=== PATIENT | female | born 1985 | race Caucasian/White ===

== ENCOUNTER 2016-12-26 16:53 | Emergency (ER) | payer OTHER ==
[2016-12-26 17:10] VITALS: BP 133/61
--- NOTE | 2016-12-26 19:03 | UC ---
Complaint Female HPI - HPI Summary HPI Summary: 31 yo female 23 weeks presents with a 1-2 day hx of urinary urgency no dysuria no back pain no ctx no f/c no n/v seen in ED a few weeks ago/had ulrasound and diagnoses as having multiple kidney stones - History Of Current Complaint Chief Complaint: UCGU Stated Complaint: URINARY-23 WKS Time Seen by Provider: 12/26/16 18:44 Hx Last Menstrual Period: 03/30/15 Onset/Duration: Gradual Onset, Lasting Days Timing: Constant Severity Initially: Mild Severity Currently: Mild Pain Intensity: 3 Character: Dull Aggravating Factor(s): Nothing Alleviating Factor(s): Nothing - Allergies/Home Medications Allergies/Adverse Reactions: Allergies Allergy/AdvReac Type Severity Reaction Status Date / Time No Known Allergies Allergy Verified 12/26/16 17:10 Home Medications: Home Medications Docosahexaenoic Acid [ Dha] 200 mg PO DAILY 12/26/16 [History Confirmed 12/26/16] metFORMIN* [Glucophage 500 MG TAB *] 500 mg PO DAILY 12/26/16 [History Confirmed 12/26/16] PMH/Surg Hx/FS Hx/Imm Hx Previously Healthy: Yes - Surgical History Surgical History: Yes Surgery Procedure, Year, and Place: c sect 2007,. t/a at age 11 yrs. 2ND C SECTION 02/20/13 - Family History Known Family History: Positive: Hypertension - Social History Alcohol Use: None Substance Use Type: None Smoking Status (MU): Never Smoked Tobacco Have You Smoked in the Last Year: No Review of Systems Constitutional: Negative Skin: Negative Eyes: Negative ENT: Negative Respiratory: Negative Cardiovascular: Negative Gastrointestinal: Negative Genitourinary: Frequency, Urgency Motor: Negative Neurovascular: Negative Musculoskeletal: Negative Neurological: Negative Psychological: Negative All Other Systems Reviewed And Are Negative: Yes Physical Exam Triage Information Reviewed: Yes Appearance: Well-Appearing, No Pain Distress, Well-Nourished Vital Signs: Initial Vital Signs Temp 99.6 F 12/26/16 17:05 Pulse 91 12/26/16 17:05 Resp 16 12/26/16 17:05 BP 133/61 12/26/16 17:05 Pulse Ox 97 12/26/16 17:05 Eyes: Positive: Conjunctiva Clear ENT: Positive: Hearing grossly normal, Pharynx normal. Negative: Nasal congestion, Nasal drainage, Trismus, Muffled/hoarse voice Neck: Positive: Supple Respiratory: Positive: Lungs clear, Normal breath sounds, No respiratory distress, No accessory muscle use Cardiovascular: Positive: RRR Abdomen Description: Positive: Other: - gravid uterus. Negative: Nontender - slight suprapubic tenderness, CVA Tenderness (R), CVA Tenderness (L) Neurological: Positive: Alert, Muscle Tone Normal Skin Exam: Normal Complaint Female Dx - Course Course Of Treatment: U dip microscopic hematuria - Differential Dx/Diagnosis Provider Diagnoses: microscopic hematuria. ? urolithiasis Discharge - Discharge Plan Condition: Stable Disposition: HOME Prescriptions: Amoxicillin (*) [Amoxicillin 875 MG (*)] 875 mg PO BID #14 tab Patient Education Materials: Kidney Stones (ED), Urinary Tract Infection in Women (ED) Referrals: Swathi Jane PA [Primary Care Provider] - Additional Instructions: I suspect your symptoms are due to a kidney stone irritating your bladder We will start an antibiotic in case you have a UTI Culture will take 2-3 days TO ER FOR fever increased pain vomiting Call you OB in AM You may need a renal ultrasound and/or a urology referral
== END 2016-12-26 19:02 | disposition home or self-care (01) ==
LOC: UCCORT 16:53
DX: O26.892 Other specified pregnancy related conditions, second trimester (principal); R31.29 Other microscopic hematuria; Z3A.23 23 weeks gestation of pregnancy; Z87.442 Personal history of urinary calculi
CPT/HCPCS: 81003; 87086; 99212; G0463

== ENCOUNTER 2022-12-28 06:36 | Observation (INO) ==
[~2022-12-28 06:36] MED LIST: Buffered Lidocaine 1% SYRIN 1 ml INTRADERM ONE; Lactated Ringers 1000 ml BAG 1,000 ML IV SCH
[2022-12-28] MEDS ORDERED: Ondansetron ODT 4 mg TAB 4 MG TAB ONE (06:56)
[2022-12-28] MEDS ORDERED: Scopolamine 1 mg/72hr PATCH ONE (06:56)
[2022-12-28] MEDS ORDERED: ceFOXitin 2 GM IVPREMIX 2 GM/50 ML BAG ONE ×3 (06:57→12:36)
[2022-12-28] MEDS ORDERED: Lidocaine 2% PF 5 ML VIAL ONE (07:15)
[2022-12-28 07:17] LABS: Rapid COVID-19 Molecular Undetected (Undetected)
[2022-12-28] MEDS ORDERED: Propofol 10 MG/ML 20 ML BTL ONE ×2 (07:24→13:13)
[2022-12-28] MEDS ORDERED: Rocuronium 50 mg VIAL 10 mg/ml 5 ml VIAL (50 mg) ONE ×3 (07:25→11:11)
[2022-12-28] MEDS ORDERED: Midazolam 2 mg/2 ml VIAL 1 mg/ml 2 ml VIAL (2 mg) ONE (07:25)
[2022-12-28] MEDS ORDERED: fentaNYL 100 mcg/2 ml 50 MCG/ML VIAL ONE (07:25)
[2022-12-28] MEDS ORDERED: Bupivacaine 0.5% SDV PF 30ML VIAL ONE ×2 (08:11→14:32)
[2022-12-28] MEDS ORDERED: fentaNYL 100 mcg/2 ml 50 MCG/ML VIAL IV PRN (08:53)
[2022-12-28] MEDS ORDERED: Ondansetron 4 mg VIAL 2 MG/ML 2 ml VIAL IV PRN ×2 (08:53→16:09)
[2022-12-28] MEDS ORDERED: Prochlorperazine 5 mg/ml 2 ml VIAL (10 mg) IV PRN (08:53)
[2022-12-28] MEDS ORDERED: Naloxone 0.4 mg VIAL 0.4 mg/ml 1 ml VIAL IV PRN (08:53)
[2022-12-28] MEDS ORDERED: HYDROmorphone 0.5 MG/0.5 ML SYRINGE ONE ×2 (10:16→11:18)
[2022-12-28] MEDS ORDERED: Sodium Chloride 0.9% 10 ML ONE (13:07)
[2022-12-28] MEDS ORDERED: Ondansetron 4 mg VIAL 2 MG/ML 2 ml VIAL ONE (13:45)
[2022-12-28] MEDS ORDERED: HYDROmorphone 1 MG/1 ML SYRINGE ONE (14:36)
[2022-12-28] MEDS: HYDROmorphone 1 MG/1 ML SYRINGE IV PRN ×5 (14:38→15:01)
[2022-12-28] MEDS ORDERED: Prochlorperazine 5 mg/ml 2 ml VIAL (10 mg) ONE (14:45)
[2022-12-28] MEDS ORDERED: Acetaminophen IV 1 GM/100ML 1,000 MG/100 ML BAG IV ONE ×2 (15:18→15:24)
[2022-12-28] MEDS ORDERED: oxyCODONE/Acetamin 5/325 mg TAB PO PRN (16:09)
[2022-12-28] MEDS: Lactated Ringers 1000 ml BAG 1,000 ML IV SCH (18:13)
[2022-12-29] MEDS: Lactated Ringers 1000 ml BAG 1,000 ML IV SCH (02:49)
[2022-12-29 06:23] LABS: ABS Lymphocytes 0.8 10^3/uL (1.0-4.8); ABS Monocytes 0.8 10^3/uL (0.0-0.9); ABS Neutrophils 9.9 10^3/uL (1.5-7.6); Hematocrit 33.7 % (35-45); Hemoglobin 11.5 g/dL (11.5-14.3); Lymphocyte % 6.6 %; Mean Corpuscular Hemoglobin 30.7 pg (27-33); Mean Corpuscular Hgb Conc 34.1 g/dL (31-36); Mean Platelet Volume 8.8 fL (7.5-11.2); Platelet Count 184 10^3/uL (150-450); Red Blood Count 3.75 10^6/uL (3.63-4.92); Red Cell Distribution Width 12.6 % (12-17); White Blood Count 11.5 10^3/uL (3.8-11.8)
[2022-12-29 10:18] VITALS: BP 96/59
== END 2022-12-29 11:03 | disposition home or self-care (01) ==
LOC: SSU 06:36 → OR 06:36
PROVIDERS: ADMIT Obstetrics & Gynecology; ATTEND Obstetrics & Gynecology